=== PATIENT | female | born 1940 | race Caucasian/White ===

== ENCOUNTER 2023-11-01 11:31 | Inpatient (IN) | payer MEDICARE ==
[2023-11-01 12:46] LABS: BASOPHILS ABSOLUTE AUTO 0.1 K/mm3 (0.0-0.2); BASOPHILS PERCENT AUTO 0.6 % (0.0-1.0); EOSINOPHILS ABSOLUTE AUTO 0.1 K/mm3 (0.0-0.4); EOSINOPHILS PERCENT AUTO 1.2 % (0.0-6.0); HEMATOCRIT 38.9 % (37.0-47.0); HEMOGLOBIN 12.1 gm/dl (12.0-16.0); IMMATURE GRAN ABSOLUTE AUTO 0.04 K/mm3 (0.00-0.05); IMMATURE GRAN PERCENT AUTO 0.5 % (0.0-0.4); LYMPHOCYTES ABSOLUTE AUTO 1.7 K/mm3 (1.0-4.8); LYMPHOCYTES PERCENT AUTO 19.2 % (24.0-44.0); MEAN CORPUSCULAR HEMOGLOBIN 23.4 pg (28.0-32.0); MEAN CORPUSCULAR HGB CONC 31.1 g/dl (32.0-36.0); MEAN CORPUSCULAR VOLUME 75.1 fl (83.0-99.0); MEAN PLATELET VOLUME 9.5 fl (9.4-12.3); MONOCYTES PERCENT AUTO 11.1 % (0.0-8.0); NEUTROPHILS ABSOLUTE AUTO 5.8 K/mm3 (1.8-7.7); NEUTROPHILS PERCENT AUTO 67.4 % (41.0-71.0); PLATELET COUNT,PLT 409 K/mm3 (150-400); RED BLOOD CELL COUNT 5.18 M/mm3 (4.10-5.30); WHITE BLOOD CELL COUNT,WBC 8.65 K/mm3 (3.9-11.3)
[2023-11-01 13:07] LABS: A/G RATIO 0.8 (1-2); ALANINE AMINOTRANSFERASE,ALT 18 U/L (14-59); ALBUMIN 3.2 g/dl (3.4-5.0); ALKALINE PHOSPHATASE 54 U/L (46-116); ANION GAP 14.2 (5-15); ASPARTATE AMNIOTRANSFERASE,AST 11 U/L (15-37); BILIRUBIN TOTAL 0.4 mg/dL (0.2-1.0); BLOOD UREA NITROGEN,BUN 18 mg/dL (7-18); BUN/CREATININE RATIO 12.9 (14-18); CALCIUM 9.3 mg/dL (8.5-10.1); CARBON DIOXIDE,CO2 26 mEq/L (21-32); CHLORIDE,CL 97 mEq/L (98-107); CREATININE 1.4 mg/dL (0.55-1.02); ESTIMATED GFR 37 mL/min (>60); GLUCOSE RANDOM 109 mg/dL (70-99); MAGNESIUM 2.1 mg/dL (1.8-2.4); POTASSIUM,K 4.2 mEq/L (3.5-5.1); PROTEIN TOTAL,TP 7.2 g/dl (6.4-8.2); SODIUM,NA 133 mEq/L (136-145)
[2023-11-01] MEDS: Sodium Chloride 0.9% 10 ML Syringe FLUSH PRN (13:15)
[2023-11-01 14:03] LABS: APPEARANCE,URINE CLEAR (Clear); BILIRUBIN,URINE NEGATIVE (Negative); COLOR,URINE YELLOW (Yellow); GLUCOSE,URINE NEGATIVE (Negative); KETONES,URINE NEGATIVE (Negative); LEUKOCYTE ESTERASE,URINE NEGATIVE (Negative); NITRITE,URINE NEGATIVE (Negative); OCCULT BLOOD,URINE NEGATIVE (Negative); PH,URINE 7.5 (5.0-8.0); PROTEIN,URINE NEGATIVE (Negative); UROBILINOGEN,URINE 0.2 (0.2-1.0)
[2023-11-01] MEDS: Enoxaparin 30 MG/0.3 ML Syringe SUBCUT SCH (18:24)
[2023-11-01] MEDS: Acetaminophen 325 MG Tab PO PRN (18:25)
[2023-11-01 19:36] LABS: TSH 2.781 uIU/mL (0.358-3.74)
[2023-11-01] MEDS: Sodium Chloride 0.9% 1,000 ML IV SCH (20:52)
[2023-11-01] MEDS: Aspirin 81 MG Tab.EC PO SCH (22:09)
[2023-11-01] MEDS: Metoprolol Tartrate 50 MG Tab PO SCH (22:10)
[2023-11-02] MEDS: Pantoprazole 40 MG Tab.CR PO SCH (07:40)
[2023-11-02] MEDS: amLODIPine 5 MG Tab PO SCH (08:54)
[2023-11-02] MEDS: Famotidine 20 MG Tab PO SCH (08:54)
[2023-11-02] MEDS: Sertraline 50 MG Tab PO SCH (08:54)
[2023-11-02 09:45] LABS: BASOPHILS PERCENT AUTO 0.6 % (0.0-1.0); EOSINOPHILS ABSOLUTE AUTO 0.1 K/mm3 (0.0-0.4); EOSINOPHILS PERCENT AUTO 1.1 % (0.0-6.0); HEMATOCRIT 40.9 % (37.0-47.0); HEMOGLOBIN 12.6 gm/dl (12.0-16.0); IMMATURE GRAN ABSOLUTE AUTO 0.03 K/mm3 (0.00-0.05); IMMATURE GRAN PERCENT AUTO 0.4 % (0.0-0.4); LYMPHOCYTES ABSOLUTE AUTO 0.9 K/mm3 (1.0-4.8); LYMPHOCYTES PERCENT AUTO 13.5 % (24.0-44.0); MEAN CORPUSCULAR HEMOGLOBIN 23.3 pg (28.0-32.0); MEAN CORPUSCULAR HGB CONC 30.8 g/dl (32.0-36.0); MEAN CORPUSCULAR VOLUME 75.6 fl (83.0-99.0); MEAN PLATELET VOLUME 9.8 fl (9.4-12.3); MONOCYTES ABSOLUTE AUTO 0.6 K/mm3 (0.0-0.8); MONOCYTES PERCENT AUTO 8.2 % (0.0-8.0); NEUTROPHILS ABSOLUTE AUTO 5.3 K/mm3 (1.8-7.7); NEUTROPHILS PERCENT AUTO 76.2 % (41.0-71.0); PLATELET COUNT,PLT 405 K/mm3 (150-400); RED BLOOD CELL COUNT 5.41 M/mm3 (4.10-5.30); WHITE BLOOD CELL COUNT,WBC 6.98 K/mm3 (3.9-11.3)
[2023-11-02 10:32] LABS: A/G RATIO 0.8 (1-2); ANION GAP 13.4 (5-15); BILIRUBIN TOTAL 0.3 mg/dL (0.2-1.0); BUN/CREATININE RATIO 15.5 (14-18); CALCIUM 9.4 mg/dL (8.5-10.1); CREATININE 1.1 mg/dL (0.55-1.02); EST CRCL DRUG DOSING (CG) 27.83 mL/min; PROTEIN TOTAL,TP 6.9 g/dl (6.4-8.2)
[2023-11-02 10:41] LABS: POTASSIUM,K 3.4 mEq/L (3.5-5.1)
[2023-11-02] MEDS: Potassium Chloride 20 MEQ Tab.ER PO ONE (16:19)
[2023-11-02] MEDS: Cyanocobalamin (Vitamin B12) 1,000 MCG/ML SDV IM ONE (16:22)
[2023-11-02] MEDS: Cyanocobalamin (Vitamin B12) 1,000 MCG Tab PO ONE (16:49)
[2023-11-05] MEDS ORDERED: Acetaminophen 325 MG Tab PO PRN (13:08)
== END 2023-11-06 10:15 | disposition home health service (06) | DRG 682 ==
LOC: JD.ED 11:31 → JD.MS 16:23 → OBSVTOIN 11-03 13:01
PROVIDERS: ADMIT Family Medicine; ATTEND Internal Medicine
DX: N17.9 Acute kidney failure, unspecified (principal); R79.89 Other specified abnormal findings of blood chemistry; R26.81 Unsteadiness on feet; G92.8 Other toxic encephalopathy; I10 Essential (primary) hypertension; H61.21 Impacted cerumen, right ear; H54.7 Unspecified visual loss; E78.00 Pure hypercholesterolemia, unspecified; K21.9 Gastro-esophageal reflux disease without esophagitis; R53.1 Weakness; I70.0 Atherosclerosis of aorta; R26.2 Difficulty in walking, not elsewhere classified; I25.10 Atherosclerotic heart disease of native coronary artery without angina pectoris; E86.0 Dehydration; R94.31 Abnormal electrocardiogram [ECG] [EKG]; E53.8 Deficiency of other specified B group vitamins; I95.9 Hypotension, unspecified; Z88.5 Allergy status to narcotic agent; Z88.0 Allergy status to penicillin; Z88.8 Allergy status to other drugs, medicaments and biological substances; Z79.82 Long term (current) use of aspirin; Z79.899 Other long term (current) drug therapy; Z95.1 Presence of aortocoronary bypass graft; Z87.01 Personal history of pneumonia (recurrent); Z87.440 Personal history of urinary (tract) infections; Z85.3 Personal history of malignant neoplasm of breast; Z86.16 Personal history of COVID-19; Z90.710 Acquired absence of both cervix and uterus; Z98.890 Other specified postprocedural states; Z87.891 Personal history of nicotine dependence; Z91.81 History of falling
CPT/HCPCS: 36415 ×2; 51798; 70450; 71045; 72125; 80053 ×2; 80307; 81003; 82607; 83735; 84443; 84484 ×2; 85025 ×2; 93005 ×2; 99285; A9270 ×14; C1758; J1650 ×3; J3490; J7030 ×2; 93010; 96372; 97110-GP; 97161-GP; 97530-GP; G0378